=== PATIENT | female | born 1945 | race Caucasian/White ===

== ENCOUNTER → 2017-07-17 | Outpatient (CLI) | payer MEDICARE, BC ==
[~2017-07-17] VITALS: Ht 167.6 cm; Wt 77.7 kg
[~2017-07-17] MED LIST: APIX5TAB PO; BIOT50006 SL; CALCTAB19 PO; CARV6.252 PO; CHLORHEXIDINE GLUCONATE 2 % 1 PACK (2 CLOTHS) TOPICAL PRN; FOSA70TA PO; INSULIN HUMAN REGULAR 1,000 UNITS/10 ML VIAL SQ PRN; LACTATED RINGER'S 1000 ML IV PRN; LEVO88TA2 PO; METOPROLOL TARTRATE 25 MG TAB PO PRN; MULT-65 PO; OMEP20TA93 PO; SACU1TAB7 PO; SODIUM CHLORID 0.9% 500 ML IV PRN; ZOCO40TA PO
--- NOTE | 2017-07-17 11:23 | GIPROC ---
[facility] [address] [facility]. [facility], [address] COLONOSCOPY PROCEDURE REPORT EXAM DATE: 07/17/2017 PATIENT NAME: Mavis Molina MR #: [id number] BIRTHDATE: 1945 ENDOSCOPIST: Daniel Greenwood MD ORDER #: [id number] FROG [employer]: Digna Cole and Maddison Medina STATUS: outpatient INDICATIONS: The patient is a 71 yr old female here for a colonoscopy due to high risk patient with personal history of colonic polyps PROCEDURE PERFORMED: Colonoscopy with biopsy MEDICATIONS: Per Anesthesia and None. PREP QUALITY: fair PREP TYPE:MoviPrep ESTIMATED BLOOD LOSS: None CONSENT: The patient understands the risks and benefits of the procedure and understands that these risks include, but are not limited to: sedation, allergic reaction, infection, perforation and/or bleeding. Alternative means of evaluation and treatment include, among others: physical exam, x-rays, and/or surgical intervention. The patient elects to proceed with this endoscopic procedure. medical equipment was checked for proper function. Hand hygiene and appropriate measures for infection prevention was taken. After the risks, benefits and alternatives of the procedure were thoroughly explained, Informed consent was verified, confirmed and timeout was successfully executed by the treatment team. A digital exam was performed and revealed no abnormalities of the rectum The Pentax EC-[id number] endoscope was introduced through the anus and advanced to the ileum. The instrument was then slowly withdrawn as the colon was fully examined. COLON FINDINGS: A smooth sessile polyp measuring 2 mm in size was found at the hepatic flexure. A biopsy was performed using cold forceps. A smooth sessile polyp measuring 2 mm in size was found in the distal transverse colon. A biopsy was performed using cold forceps. Mild diverticulosis was noted in the sigmoid colon. Small internal hemorrhoids were found. Retroflexion was not performed due to a narrow rectal vault The scope was then completely withdrawn from the patient and the procedure terminated. PROCEDURE WITHDRAWAL TIME:17minutes ADVERSE EVENTS: There were no complications. IMPRESSIONS: 1. A sessile polyp was found at the hepatic flexure; biopsy was performed using cold forceps 2. A sessile polyp was found in the distal transverse colon; biopsy was performed using cold forceps 3. Mild diverticulosis was noted in the sigmoid colon 4. Small internal hemorrhoids 5. Retroflexion was not performed due to a narrow rectal vault 6. Was performed 7. Revealed no abnormalities of the rectum RECOMMENDATIONS: 1. Await biopsy results. Biopsy results will not be ready for 7-10 days. If you don't hear from us in two weeks, call our office for results. 2. Resume eliquis today. ROV in 1 month RECALL: Return 3 years Colonoscopy Daniel Greenwood MD eSigned: Daniel Greenwood MD 07/17/2017 11:23 AM cc: PATIENT NAME: Mavis Molina MR#: [id number]
[2017-07-17 12:06] VITALS: BP 101/65; PULSE 63; RESP 18; TEMP 97; O2SAT 98
== END ==
LOC: HSDC 07:41
PROVIDERS: ATTEND Internal Medicine Gastroenterology
DX: Z12.11 Encounter for screening for malignant neoplasm of colon (principal); K63.5 Polyp of colon; K64.8 Other hemorrhoids
CPT/HCPCS: 88305